=== PATIENT | female | born 1950 | race Two or more races ===

== ENCOUNTER 2018-02-24 10:43 | Inpatient (IN) | payer MEDICAID ==
[~2018-02-24] VITALS: Ht 170.2 cm; Wt 54.9 kg
--- NOTE | 2018-02-24 11:10 | NUR ---
AAOX3, BIB ra and [employer], pt was at home disheveled, covered with feces. RR is even and unlabored with nad noted. skin is warm and dry. placed on the monitor. Awaiting md for eval.
[2018-02-24 11:25] LABS: BASOPHILS % (AUTO) 0.5 % (0.0-2.0); EOSINOPHILS % (AUTO) 0.8 % (0.0-6.0); HEMATOCRIT 34 % (33-45); HEMOGLOBIN 11.2 g/dL (11.5-14.8); LYMPHOCYTES # (AUTO) 1.4 /CMM (0.8-4.8); LYMPHOCYTES % (AUTO) 16.2 % (20.0-44.0); MEAN CORPUSCULAR HGB CONC 33 g/dl (31.0-36.0); MEAN CORPUSCULAR VOLUME 89 fL (82-100); MONOCYTES # (AUTO) 0.8 /CMM (0.1-1.30); MONOCYTES % (AUTO) 8.7 % (2.0-12.0); NEUTROPHILS # (AUTO) 6.5 /CMM (1.8-8.9); NEUTROPHILS % (AUTO) 73.8 % (43.0-81.0); PLATELET COUNT (AUTO) 532 /CMM (150-450); RED BLOOD CELL COUNT(AUTO) 3.82 MIL/uL (4.0-5.2); WHITE BLOOD COUNT (AUTO) 8.8 K/uL (4.3-11.0)
[2018-02-24] MEDS ORDERED: IV NS 0.9% 1,000 ML BAG IV ONE (11:30)
[2018-02-24 11:35] LABS: CALCIUM, SERUM 8.2 mg/dL (8.5-10.1); CARBON DIOXIDE 27 mmol/L (21-32); CHLORIDE 103 mmol/L (98-107); CREATININE 0.7 mg/dL (0.6-1.3); GLUCOSE 101 mg/dL (74-106); POTASSIUM 3.3 mmol/L (3.5-5.1); SODIUM SERUM 139 mmol/L (136-145); UREA NITROGEN, BLOOD 26 mg/dL (7-18)
[2018-02-24 11:39] LABS: ALANINE AMINOTRANSFERASE 15 U/L (12-78); ALBUMIN 2.7 g/dL (3.4-5.0); ALCOHOL, BLOOD < 3 mg/dL (0-0); ALKALINE PHOSPHATASE 88 U/L (46-116); ASPARTATE AMINOTRANSFERASE 14 U/L (15-37); BILIRUBIN,DIRECT 0.1 mg/dL (0.0-0.2); BILIRUBIN,TOTAL 0.2 mg/dL (0.2-1.0); TOTAL PROTEIN, SERUM 6.9 g/dL (6.4-8.2)
[2018-02-24 11:40] LABS: ACETAMINOPHEN 0 ug/ml (10-30); SALICYLATE 0.5 mg/dL (2.8-20.0)
--- NOTE | 2018-02-24 11:53 | NUR ---
Urine obtained sent to the lab.
[2018-02-24 11:57] LABS: APPEARANCE,URINE Clear (CLEAR); BILIRUBIN,URINE Negative (NEGATIVE); BLOOD, URINE Trace-lysed Ery/uL (NEGATIVE); COLOR,URINE Yellow (YELLOW); KETONES,URINE Trace (NEGATIVE); LEUKOCYTE ESTERASE ,URINE Negative (NEGATIVE); NITRITE, URINE Negative (NEGATIVE); PH,URINE 5.5 (5.0-8.0); PROTEIN,URINE Trace mg/dl (NEGATIVE); UGLUCOSE Negative (NEGATIVE); UROBILINOGEN,URINE 0.2 EU/dL (0.2)
[2018-02-24 12:06] LABS: BACTERIA,URINE None seen /HPF (None Seen); SQUAMOUS EPITHELIAL CELL,UR Few /HPF (None Seen); WBC,URINE 0-3 /HPF (0-3)
--- NOTE | 2018-02-24 13:16 | NUR ---
Called nursing slab conditioner supervisor and requested a tele bed for this pt.
--- NOTE | 2018-02-24 13:25 | NUR ---
Patient's neighbor at talking to SAMMY Anand.
--- NOTE | 2018-02-24 13:38 | NUR ---
Patient is resting comfortably in bed with eyes closed. Easily aroused. VSS
[2018-02-24] MEDS ORDERED: MAG HYDROX/AL HYDROX/SIMETH 30 ML UDC PO PRN (14:00)
[2018-02-24] MEDS ORDERED: MAGNESIUM HYDROXIDE 30 ML UDC PO PRN (14:00)
[2018-02-24] MEDS ORDERED: ONDANSETRON HCL/PF 4 MG/2 ML VIAL IVP PRN (14:00)
[2018-02-24] MEDS ORDERED: POTASSIUM CHLORIDE 20 MEQ TAB.PRT.SR PO ONE (14:00)
[2018-02-24] MEDS ORDERED: IV NS 0.9% 1,000 ML IV SCH (14:00)
[2018-02-24] MEDS ORDERED: Z GUARD REMEDY 2 OZ OINT TP PRN (14:00)
--- NOTE | 2018-02-24 14:15 | NUR ---
Pt is assigned to [facility] 307-2, DX: Acute Encephalopathy, and accepting : Carolyn Reyes NP
--- NOTE | 2018-02-24 14:32 | NUR ---
REPORT GIVEN TO TAWANNA REID FOR RONEY TELE 307-1
--- NOTE | 2018-02-24 15:10 | NUR ---
TELE/RN OPENING NOTE THE PATIENT IS RECEIVED ON A GURNEY. THE PATIENT IS ABLE TO AMBULATE WITH STAND BY ASSIST FROM GURNEY TO BED. ALERT AND ORIENTED X2. REDIRECTION PROVIDED. ORIENTATION GIVEN TO THE ROOM AND UNIT. THE PATIENT DENIES PAIN AT THIS TIME. IN ROOM AIR AND DENIES SOB. RESPIRATION REGULAR AND UNLABORED. LEFT FOREARM G 20 PATENT AND SALINE LOCKED. BED LOW AND LOCKED. SIDE RAILS UP X3. BED ALARM ON. CALL LIGHT WITHIN REACH. WILL CONTINUE TO MONITOR.
[2018-02-24 15:30] VITALS: BP 131/74
[2018-02-24] MEDS: ENOXAPARIN SODIUM 40 MG/0.4 ML DISP.SYRIN SQ SCH (15:51)
--- NOTE | 2018-02-24 17:58 | NUR ---
TELE/RN CLOSING NOTE THE PATIENT ALERT AND ORIENTED X2. DENIES PAIN. PATIENT IS IN ROOM AIR AND DENIES SOB. SATURATION IN ROOM AIR AT 95%. THE PATIENT IS IN NO APPARENT DISTRESS. LEFT FOREARM G 20 PATENT AND NORMAL SALINE INFUSING AT 50ML/HR. NO S/S INFILTRATION NOTED. VERBAL CUES ARE GIVEN TO KEEP SAFETY AWARENESS HIGH. BED LOW AND LOCKED. SIDE RAILS UP X3. BED ALARM ON. CALL LIGHT WITHIN REACH. WILL ENDORSE TO DATA SECURITY COORDINATOR.
[2018-02-24 20:00] VITALS: BP 114/69
--- NOTE | 2018-02-24 20:00 | NUR ---
TELE/RN NOTES RECEIVED PATIENT IN BED, AWAKE, ALERT X2, CAN OPEN EYES AND RESPOND, AMBULATES WITH ASSISTANCE, INSTRUCT TO CALL FOR ASSISTANCE, SAFETY MEASURES PROVIDED, BED LOCKED, CALL LIGHTS WITHIN REACH AND BED ALARM ON. SKIN WARM TO TOUCH, HAD ONE BM ATTHE START OF SHIFT, ON TELE MONITOR SR 78. RECEIVED REPORT FROM AM RN FOR RONEY.
[2018-02-25] VITALS: BP 131/79
[2018-02-25] MEDS: ACETAMINOPHEN 325 MG TABLET PO PRN (00:38)
--- NOTE | 2018-02-25 00:42 | NUR ---
TELE/RN NOTES' REPORTED PAIN ON RIGHT ARM , TYLENOL GIVEN 650MG PO 05/26
[2018-02-25 04:00] VITALS: BP 125/81
[2018-02-25 06:19] LABS: BASOPHILS % (AUTO) 0.4 % (0.0-2.0); EOSINOPHILS % (AUTO) 0.7 % (0.0-6.0); HEMATOCRIT 29 % (33-45); LYMPHOCYTES # (AUTO) 1.6 /CMM (0.8-4.8); LYMPHOCYTES % (AUTO) 28.1 % (20.0-44.0); MEAN CORPUSCULAR HGB CONC 34 g/dl (31.0-36.0); MEAN CORPUSCULAR VOLUME 87 fL (82-100); MONOCYTES # (AUTO) 0.7 /CMM (0.1-1.30); MONOCYTES % (AUTO) 11.9 % (2.0-12.0); NEUTROPHILS # (AUTO) 3.4 /CMM (1.8-8.9); NEUTROPHILS % (AUTO) 58.9 % (43.0-81.0); PLATELET COUNT (AUTO) 442 /CMM (150-450); RED BLOOD CELL COUNT(AUTO) 3.34 MIL/uL (4.0-5.2); WHITE BLOOD COUNT (AUTO) 5.8 K/uL (4.3-11.0)
[2018-02-25 06:39] LABS: THYROID STIMULATING HORMONE 1.975 uIU/mL (0.358-3.74)
[2018-02-25 06:41] LABS: CALCIUM, SERUM 7.8 mg/dL (8.5-10.1); CREATININE 0.7 mg/dL (0.6-1.3); MAGNESIUM 1.8 mg/dL (1.8-2.4); PHOSPHORUS 2.7 mg/dL (2.5-4.9); POTASSIUM 3.6 mmol/L (3.5-5.1)
--- NOTE | 2018-02-25 06:47 | NUR ---
307-2 TELE/RN NOTES PATIENT ALERT X2, CAN FOLLOW SIMPLE COMMANDS, WITH [employer] CONTACT, TELE SR 70'S, ON PAIN MANAGMENT MONITORING, ASSISTED FOR SAFTY, ON LFA RUNNING AT 50CC/HR.WILL MONITOR AND ENDORSE TO AM RN FOR RONEY.
--- NOTE | 2018-02-25 07:20 | NUR ---
PUBLIC AFFAIRS SPECIALIST OPENING NOTES PATIENT ALERT X2, TELE SR 101'S AT THIS TIME, SAFETY PRECAUTIONS IN PLACE,PA ABLE TO WALK.IV FLUID ON LFA RUNNING AT 50CC/H. CALL LIGHT WITH IN THE REACH.WILL CONTINUE TO MONITOR
[2018-02-25 08:00] VITALS: BP 129/61
--- NOTE | 2018-02-25 09:43 | NUR ---
PT PULLED OUT IV LINE. WILL INSERT ANOTHER ONE.
--- NOTE | 2018-02-25 10:00 | NUR ---
PT PICKET UP FOR MRI
--- NOTE | 2018-02-25 13:48 | NUR ---
ALAN received a call from pt's neighbor Rodger stating that he was the one that found the pt. on the floor in her home, covered in feces. [employer] and APS ALAN Reyes are involved. Rodger informed ALAN he will call ALAN back and give her a time and date when he can visit with her and onsite case manager to discuss further plan of care.
--- NOTE | 2018-02-25 15:12 | NUR ---
ALAN and case management director Logan met with pt's neighbor Rodger Rose to discuss pt's disposition and possible discharge plan. ALAN and case management director informed Rodger they will keep him posted regarding pt's discharge plan as it is not determined as of yet. According to Rodger, pt's date of might be 1950 instead of 1950. ALAN and Rodger went to see the pt. bedside, however pt. was having a test done bedside. Pt. recognized Rodger and abruptly said, " You sent me here, didn't you." ALAN and Rodger were asked to leave the room due to pt. having a test. ALAN to visit with pt. tomorrow for an assessment. Addendum: 02/25/18 at 1527 by ELEAZAR PHILLIPS According to Rodger, pt. has an open case with APS. APS social media editor is Amy .
--- NOTE | 2018-02-25 15:28 | NUR ---
ALAN contacted APS ALAN Reyes and left him a voicemail message requesting a call back.
[2018-02-25 16:00] VITALS: BP 143/58
--- NOTE | 2018-02-25 19:00 | NUR ---
RN NOTES RECEIVE PT IN THE BED A/O X 1, IN STABLE CONDITION, NOT IN DISTRESS, SAFETY MEASURES IN PLACE. WILL CONTINUE TO MONITOR.
--- NOTE | 2018-02-25 19:20 | NUR ---
PATIENT ALERT/ORIENTED X2, ON ROOM AIR TOLERATING WELL, NO DISTRESS NOTED. NEEDS ATTENDED. SAFETY PRECAUTIONS IN PLACE. WILL ENDORSE TO NEXT SHIFT FOR RONEY.
[2018-02-25 20:00] VITALS: BP 120/54
[2018-02-25] MEDS: ENOXAPARIN SODIUM 40 MG/0.4 ML DISP.SYRIN SQ SCH (20:57)
[2018-02-25] MEDS: IV NS 0.9% 1,000 ML IV PRN (20:59)
--- NOTE | 2018-02-26 06:34 | NUR ---
RN CLOSING NOTE PT IN BED RESTING ASLEEP AND EASILY AWAKEN. TOLERATING ROOM AIR 100%. NO S/S OF RESP DISTRESS OR SOB. ALL PT NEEDS ANTICIPATED AND MET. KEPT CLEAN AND DRY AND COMFORT, SAFETY MEASURES IN PLACE, CALL LIGHT WITHIN REACH. WILL ENDORSE TO SPLICING MACHINE OPERATOR AUTOMATIC FOR RONEY.
--- NOTE | 2018-02-26 07:00 | NUR ---
MS RN NOTES PATIENT IN BED ALERT ORIENTED X 2. NO ACUTE DISTRESS NOTED, BREATHING UNLABORED. NO SOB NOTED. IV ACCESS PATENT AND INTACT. NO REDNESS OR SWELLING NOTED. SAFETY MEASURES IN PLACE, CALL LIGHT WITHIN REACH. WILL CONTINUE TO MONITOR ACCORDINGLY.
--- NOTE | 2018-02-26 07:19 | NUR ---
ms rn notes\ pt refused AM blood draw per pt wanted after breakfast will endorse next shift
[2018-02-26 08:00] VITALS: BP 122/77
--- NOTE | 2018-02-26 09:49 | NUR ---
ALAN received a call from APS ALAN Reyes informing ALAN that pt. is not able to go back home. Pt's mother and pt. has been living in her home since then. Pt. has no family. Pt. will need placement. MEHDI Reyes also informed ALAN to apply to the public guardian's office.
[2018-02-26 11:55] LABS: ALBUMIN 2.5 g/dL (3.4-5.0); BILIRUBIN,TOTAL 0.2 mg/dL (0.2-1.0); CALCIUM, SERUM 8.6 mg/dL (8.5-10.1); CREATININE 0.8 mg/dL (0.6-1.3); PHOSPHORUS 4.4 mg/dL (2.5-4.9); POTASSIUM 3.4 mmol/L (3.5-5.1); TOTAL PROTEIN, SERUM 6.6 g/dL (6.4-8.2)
--- NOTE | 2018-02-26 14:00 | NUR ---
MS RN NOTES CATALYST OPERATOR CHIEF [employer] MADE AWARE OF LABORATORY TEST RESULTS INCLUDING POTASSIUM, AST, AND ALBUMIN LEVEL FROM TODAY, NO NEW ORDER MADE AT THIS TIME.
--- NOTE | 2018-02-26 14:14 | NUR ---
Social service consult requested by NOMAN Reyes for possible APS report. Pt. is a 67 year old female who was admitted to [facility] for acute encephalopathy. SW met with pt. bedside. Pt. is alert and oriented x 2. Pt. appears disheveled and has a bauer on her chin. Pt. is able to state her home address at [address] in [place]. [place]. Pt. states, " I don't have family anymore." Pt's house in inhabitable per [employer] and APS ALAN Reyes. Pt. appears confused and is not able to provide social security number or date of . Pt. states she lives alone. SW inquired with pt. how does she get her groceries etc. Pt. states she receives SSI and goes to [employer] in [place] to get her money and goes to [employer]. Pt. also states that her neighbor Stephanie is very nice and helps her out. Pt. cannot remember how much SSI she receives per month. Pt further stated, " I don't need help, I can do everything on my own." Pt. kept repeating that she wants to go back home. Pt. is awaiting a psychiatric consult at this time.
--- NOTE | 2018-02-26 15:08 | NUR ---
ALAN contacted Public Guardian's office and spoke to Alexandru Manley, Cash Office Worker Public Conservator [facility] regarding an application for the pt. Alexandru informed SW he will email her the form and to contact him if she had any questions to Office of the Public Guardian . ALAN received the application, completed the application for [facility] and faxed it to . ALAN returned pt's neighbor Rodger's phone call and left him a voicemail message informing him that SW sent in an application to the public guardian's office. ALAN also left him a message regarding SW's communication with the pt.
[2018-02-26 16:00] VITALS: BP 118/68
--- NOTE | 2018-02-26 19:00 | NUR ---
MS RN NOTES PATIENT IN BED ALERT ORIENTED X 2. NO ACUTE DISTRESS NOTED, BREATHING UNLABORED. NO SOB NOTED. IV ACCESS PATENT AND INTACT. NO REDNESS OR SWELLING NOTED.DUE MEDICATIONS GIVEN, NO ASE NOTED. NEEDS ATTENDED AND ANTICIPATED. KEPT CLEAN DRY AND COMFORTABLE. SAFETY MEASURES IN PLACE, CALL LIGHT WITHIN REACH. ENDORSED TO NIGHT NURSE FOR CONTINUITY OF CARE.
--- NOTE | 2018-02-26 19:29 | NUR ---
MS RN NOTE PATIENT RECURRED AAOX2 IN BED. PATIENT HAS NO S/S OF DISTRESS, NO C.O OF /SOB, CHEST PAIN OR DISCOMFORT. PATIENT EDUCATED ON PLAN OF CARE FOR TONIGHT AND USE OF CALL LIGHT. BED IN LOWEST LOCKED POSITION, SIDE RAILS UP X 2. RN WILL CONTINUE TO MONITOR.
[2018-02-26 20:00] VITALS: BP 123/69
[2018-02-26] MEDS: ENOXAPARIN SODIUM 40 MG/0.4 ML DISP.SYRIN SQ SCH (20:07)
[2018-02-27 04:00] VITALS: BP 122/76
[2018-02-27] MEDS: IV NS 0.9% 1,000 ML IV PRN (06:09)
--- NOTE | 2018-02-27 06:36 | NUR ---
MS RN NOTE PATIENT TOLERATED THE NIGHT WELL WELL NO ACUTE CHANGES THROUGHOUT THE SHIFT. PATIENT HAS NO S/S OF DISTRESS. RN WILL [id number] TO AM POC FOR CONTINUITY OF CARE.
[2018-02-27 08:00] VITALS: BP 117/57
[2018-02-27 16:00] VITALS: BP_SYST 123; BP_DIAS 70; BP_DIAS 97
--- NOTE | 2018-02-27 19:01 | NUR ---
MS RN OPENING NOTES Received patient awake, on left side lying position on bed. With patent peripheral IV line LFA G#20 with NS @ 50ml/hr infusing well, no s/sx of infiltration noted. Patient noted disheveled, talking to self, inappropriate response to stimuli, incoherent thoughts, and blank staring to the person talking to her. Kept on bed comfortable. Kept bed low and locked, alarm on. Call light at beside. Will continue to monitor accordingly.
[2018-02-27 20:00] VITALS: BP 94/54
[2018-02-27 20:41] VITALS: BP 94/54
[2018-02-27] MEDS: ENOXAPARIN SODIUM 40 MG/0.4 ML DISP.SYRIN SQ SCH (21:12)
[2018-02-28 04:00] VITALS: BP 123/76
--- NOTE | 2018-02-28 06:35 | NUR ---
MS RN CLOSING NOTES Patient asleep on semi-Bailey's position with patent peripheral IV line LFA G#20 with NS @ 50ml/hr as ordered. With episodes of paranoia noted. Kept on bed clean dry and comfortable. Able to ambulate to bathroom with standby assistance. No new unusualities noted. Kept bed low and lock, exit alarm on. Call light at bedside. Endorsed to the next shift.
--- NOTE | 2018-02-28 07:30 | NUR ---
PT RECEIVED RESTING COMFORTABLY IN BED WITH EYES CLOSED. NO S/S OR C/O PAIN OR DISTRESS NOTED. SIDE RAILS UP X2, CALL LIGHT LEFT WITHIN REACH. WILL CONTINUE PLAN OF CARE.
[2018-02-28 07:38] LABS: BASOPHILS % (AUTO) 0.3 % (0.0-2.0); EOSINOPHILS % (AUTO) 0.8 % (0.0-6.0); HEMATOCRIT 34 % (33-45); HEMOGLOBIN 11.3 g/dL (11.5-14.8); LYMPHOCYTES # (AUTO) 1.4 /CMM (0.8-4.8); MEAN CORPUSCULAR HGB CONC 33 g/dl (31.0-36.0); MEAN CORPUSCULAR VOLUME 88 fL (82-100); MONOCYTES # (AUTO) 0.6 /CMM (0.1-1.30); MONOCYTES % (AUTO) 10.8 % (2.0-12.0); NEUTROPHILS # (AUTO) 3.7 /CMM (1.8-8.9); NEUTROPHILS % (AUTO) 64.1 % (43.0-81.0); PLATELET COUNT (AUTO) 505 /CMM (150-450); RED BLOOD CELL COUNT(AUTO) 3.84 MIL/uL (4.0-5.2); WHITE BLOOD COUNT (AUTO) 5.7 K/uL (4.3-11.0)
[2018-02-28 08:00] VITALS: BP 134/71
[2018-02-28 08:04] LABS: CREATININE 0.7 mg/dL (0.6-1.3); MAGNESIUM 2.3 mg/dL (1.8-2.4); PHOSPHORUS 3.5 mg/dL (2.5-4.9); POTASSIUM 4.3 mmol/L (3.5-5.1)
[2018-02-28 08:09] LABS: CALCIUM, SERUM 8.7 mg/dL (8.5-10.1)
--- NOTE | 2018-02-28 13:00 | NUR ---
PT REFUSED PHYSICAL THERAPY
[2018-02-28 16:00] VITALS: BP 119/75
[2018-02-28 20:00] VITALS: BP 137/71
[2018-02-28 20:27] VITALS: BP 137/71
[2018-02-28] MEDS: IV NS 0.9% 1,000 ML IV PRN (21:07)
[2018-02-28] MEDS: ENOXAPARIN SODIUM 40 MG/0.4 ML DISP.SYRIN SQ SCH (21:09)
[2018-03-01 04:00] VITALS: BP 118/64
--- NOTE | 2018-03-01 07:15 | NUR ---
RN OPENING NOTES RECEIVED PT. IN BED A&OX2, CONFUSED. BREATHING UNLABORED ON ROOM AIR. NO S/S OF ACUTE DISTRESS. IV FLUIDS RUNNING AT 75 ML/HR. BED IS IN LOWEST, AND LOCKED POSITION. 2 SIDE RAILS UP, BED ALARM ON. INSTRUCTED PT. TO USE CALL LIGHT FOR ASSISTANCE. ALL NEEDS MET. WILL CONTINUE TO ASSESS AND MONITOR.
[2018-03-01 08:00] VITALS: BP 124/71
[2018-03-01] MEDS: IV NS 0.9% 1,000 ML IV PRN (09:24)
[2018-03-01 16:00] VITALS: BP 115/70
--- NOTE | 2018-03-01 19:35 | NUR ---
RN MS OPENING NOTES RECEIVED PT IN BED, AWAKE ALERT ORIENTEDX2. BREATHING EVEN AND UNLABORED ON RA. NO COMPLAINS OF PAIN OR DISCOMFORT AT THIS TIME. IV ACCESS DISLODGED, WILL REINSERT. BED IN LOWEST LOCKED POSITION, CALL LIGHT WITHIN REACH AT ALL TIMES. WILL CONTINUE TO MONITOR
--- NOTE | 2018-03-01 19:45 | NUR ---
RN CLOSING NOTES PT. IS IN BED A&OX2, CONFUSED. BREATHING UNLABORED ON ROOM AIR. NO S/S OF ACUTE DISTRESS. IV FLUIDS RUNNING AT 75 ML/HR. BED IS IN LOWEST, AND LOCKED POSITION. 2 SIDE RAILS UP. INSTRUCTED PT. TO USE CALL LIGHT FOR ASSISTANCE. ALL NEEDS MET. WILL ENDORSE REPORT TO NURSE.
[2018-03-01 20:00] VITALS: BP 123/70
[2018-03-01] MEDS: ENOXAPARIN SODIUM 40 MG/0.4 ML DISP.SYRIN SQ SCH (20:19)
--- NOTE | 2018-03-02 06:40 | NUR ---
RN MS CLOSING NOTES PT REMAINS IN BED SLEEPING, AROUSED TO TOUCH AND NAME CALL. BREATHING EVEN AND UNLABORED ON ROOM AIR. NO SIGNS OF PAIN OR DISCOMFORT A THE MOMENT. IV ACCESS ON THE L WRIST 20G WITH NS @50ML/HR. BED IN LOWEST LOCKED POSITION, CALL LIGHT WITHIN REACH AT ALL TIMES. WILL ENDORSE TO DAY NURSE FOR RONEY
--- NOTE | 2018-03-02 07:56 | NUR ---
MS RN OPENING NOTE RECEIVED PATIENT IN BED. SLEEPING, EASILY AROUSED WITH VERBAL STIMULI. ORIENTED X1-2 ON ROOM AIR, TOLERATING WELL. IN NO APPARENT STRESS OR DISCOMFORT AT THIS TIME. RESPIRATIONS EVEN AND UNLABORED. DENIES PAIN AND SOB. PATIENT IS ABLE TO COMMUNICATE NEEDS. LEFT WRIST 20G IVC SL. PATIENT KEPT CLEAN AND COMFORTABLE. ALL NEEDS ATTENDED, SAFETY MEASURES IN PLACE, BED IN LOW LOCKED POSITION, SIDE RAILS UP X2, CALL LIGHT WITHIN EASY REACH. WILL CONTINUE TO MONITOR.
[2018-03-02 08:00] VITALS: BP 126/77
--- NOTE | 2018-03-02 12:00 | NUR ---
WAS TOLD BY ELISABET ARANGO THAT PATIENT HAS BEEN REFUSING AM CARE. TRIED TO CONVINCE THE PATIENT, HOWEVER, PATIENT IS UNCOOPERATIVE AT TIMES, SHOUTS AT NURSES, USES OFFENSIVE WORDS. UNABLE TO CONVINCE, WILL REATTEMPT AT LATER TIME.
--- NOTE | 2018-03-02 15:00 | NUR ---
ALAN called [facility] to inquire if pt. is or has been a client there. Per nurse receptionist, pt. was a client but her case is inactive at this time. ALAN contacted APS ALAN Velazquez to inquire if he will be able to assist in getting social security and insurance information from [facility] since pt. is unable to provide that information. Marcus informed ALAN he will contact them and call ALAN back. ALAN gave Marcus phone number to [facility].
[2018-03-02 16:00] VITALS: BP 114/66
--- NOTE | 2018-03-02 17:00 | NUR ---
MS RN NOTE REINFORCED HYGIENE CARE TO THE PATIENT WITH THE ELISABET ARANGO. PATIENT STILL REFUSES TO BE TOUCHED. AGREED TO LINEN CHANGE AND CLEANED HER FACE HERSELF WITH WET WASHCLOTH. EDUCATION PROVIDED REGARDING HYGIENE CARE AND INFECTION CONTROL. POOR CONCENTRATION OBSERVED. WILL REINFORCE.
--- NOTE | 2018-03-02 18:22 | NUR ---
MS RN CLOSING NOTE PATIENT IN BED. ALERT ORIENTED X2. ON ROOM AIR, TOLERATING WELL. IN NO APPARENT STRESS OR DISCOMFORT AT THIS TIME. RESPIRATIONS EVEN AND UNLABORED. DENIES PAIN AND SOB. PATIENT IS ABLE TO COMMUNICATE NEEDS. LEFT WRIST 20G IVC SL. PATIENT KEPT COMFORTABLE. ALL NEEDS ATTENDED, SAFETY MEASURES IN PLACE, BED IN LOW LOCKED POSITION, SIDE RAILS UP X2, CALL LIGHT WITHIN EASY REACH. WILL ENDORSE TO PM NURSE FOR RONEY.
--- NOTE | 2018-03-02 19:05 | NUR ---
ms/rn opening notes RECEIVED PATIENT IN BED,CASE MGMT. ABLE TO RESPOND WITH SIMPLE ANSWER BUT FORGETFUL. ON ROOM AIR, SKIN WARM TO TOUCH, REQUIRE MONITORING FOR SAFETY. BED LOCKED, CALL LIGHTS WITHIN REACH, HAS REDNESS IN GROIN, REQUIRE ZGUARD AND ASSIST TO BATHROOM.BED LOCKED, PROVIDE AND OFFERED FLUIDS, WILL MONITOR.
[2018-03-02 20:00] VITALS: BP 119/63
[2018-03-02] MEDS: ENOXAPARIN SODIUM 40 MG/0.4 ML DISP.SYRIN SQ SCH (21:24)
[2018-03-02] MEDS: IV NS 0.9% 1,000 ML IV PRN (21:31)
--- NOTE | 2018-03-03 06:23 | NUR ---
307-2 MS/RN NOTES PATIENT SLEPT INTERMITENTLY, ALERT X2, REQUIRE FREQUENT REORIENTATION. RESPIRATIONS EVEN AND UNLABORED, SKIN WARM TO TOUCH. KEPT COMFORTABLE, SAFETY MEASURES PROVIDED. OFFERED AND PROVIDE FLUIDS AND SNACKS. ASSISTED AND MONITORED WILL ENDORSE TO AM RN FOR RONEY. BED LOCKED, BED ALARM ON. WILL ENDORSE TO AM RN FOR RONEY.
--- NOTE | 2018-03-03 07:15 | NUR ---
MS RN OPENING NOTE RECEIVED PATIENT IN BED. SLEEPING, EASILY AROUSED WITH VERBAL STIMULI. ORIENTED X1-2, ON ROOM AIR, TOLERATING WELL. IN NO APPARENT DISTRESS OR DISCOMFORT AT THIS TIME. RESPIRATIONS EVEN AND UNLABORED. DENIES PAIN AND SOB. PATIENT IS ABLE TO COMMUNICATE NEEDS. LEFT WRIST 20G IVC SL. PATIENT KEPT CLEAN AND COMFORTABLE. ALL NEEDS ATTENDED, SAFETY MEASURES IN PLACE, BED IN LOW LOCKED POSITION, SIDE RAILS UP X2, CALL LIGHT WITHIN EASY REACH. WILL CONTINUE TO MONITOR.
[2018-03-03 08:00] VITALS: BP 145/49
--- NOTE | 2018-03-03 11:43 | NUR ---
ALAN left a voicemail message for APS ALAN Velazquez to follow up regarding his phone call to the [facility] and if he was able to get any more information on the client such as social security and medical insurance. .
[2018-03-03 16:00] VITALS: BP 108/71
--- NOTE | 2018-03-03 18:21 | NUR ---
MS RN CLOSING NOTE PATIENT IN BED. ALERT ORIENTED X1-2. DISHEVELLED, MOOD CHANGES, UNCOOPERATIVE AT TIMES. ON ROOM AIR, TOLERATING WELL. IN NO APPARENT DISTRESS OR DISCOMFORT AT THIS TIME. RESPIRATIONS EVEN AND UNLABORED. DENIES PAIN AND SOB. PATIENT IS ABLE TO COMMUNICATE NEEDS WHEN ASKED. LEFT WRIST 20G IVC SL. PATIENT KEPT COMFORTABLE. ALL NEEDS ATTENDED, SAFETY MEASURES IN PLACE, BED IN LOW LOCKED POSITION, SIDE RAILS UP X2, CALL LIGHT WITHIN EASY REACH. WILL ENDORSE TO PM NURSE FOR RONEY.
--- NOTE | 2018-03-03 19:30 | NUR ---
MS/RN OPENING NOTES RECEIVED PATIENT IN BED, RESTING COMFORTABLY, OFFERED FLUIDS, RESPIRATIONS EVEN AND UNLABORED, ABLE TO FOLLOW SIMPLE COMMANDS, REQUIRE SUPERVISION FOR SAFETY, CALL LIGHTS WITHIN REACH, BED LOCK, CALL LIGHTS WITHIN REACH, WILL MONITOR.
[2018-03-03 20:00] VITALS: BP 115/69
[2018-03-03 20:40] VITALS: BP 115/69
[2018-03-03] MEDS: ACETAMINOPHEN 325 MG TABLET PO PRN (20:45)
[2018-03-03] MEDS: ENOXAPARIN SODIUM 40 MG/0.4 ML DISP.SYRIN SQ SCH (20:47)
--- NOTE | 2018-03-03 20:50 | NUR ---
ms/rn notes PATIENT IN BED, TALKING TO SELF, OBSERVE SOME PAIN IN RIGHT ARM, TYLENOL 650MG PO OFFERED, PROVDED FLUIDS. LOVENOX INJECTION ORDERED FOR PATIENT, REQUIRE FREQUENT REORIENTATION, REFUSE TO HAVE IT AFTER AGREEING TO HAVE IT EARLIER.
--- NOTE | 2018-03-04 06:40 | NUR ---
307-2 ms/rn notes PATIENT SLEPT INTERMITENTLY. RESPIRATIONS EVEN AND UNLABORED, CAN OPEN EYES AND RESPOND TO SIMPLE QUESTIONS, REFUSAL OF CARE AND NON COMPLIANCE TO MEDICATION REGINMEN, REQUIRE ASSISTANCE FOR SAFETY. BED LOCKED, CALL LIGHTS WITHIN REACH. WILL ENDORSE TO AM RN FOR RONEY.
[2018-03-04 08:00] VITALS: BP 147/75
[2018-03-04 16:00] VITALS: BP 120/61
--- NOTE | 2018-03-04 16:19 | NUR ---
ALAN returned Melody Emanuel's voicemail from the [facility] and left a voicemail message for her with a call back number.
--- NOTE | 2018-03-04 19:45 | NUR ---
RN OPENING NOTES RECEIVED REPORT FROM LISAHIFT RNKASIE (FROM REGISTRY). FOUND Pt AWAKE, RESTING IN BED. MUMBLING TO SELF. NO S/S OF ACUTE DISTRESS OR SOB NOTED. Pt IS A/OX1-2, IS ORIENTED TO NAME & , BUT CANNOT RECALL THE DATE. Pt IS VERBAL, AND ABLE TO COMMUNICATE NEEDS AND FOLLOW SIMPLE COMMANDS. IV ACCESS ON LWRIST #20G. SAFETY MEASURES IN PLACE. BED LOW, LOCKED, HOB ELEVATED, SIDE RAILS UP, CALL LIGHT AND BEDSIDE TABLE WITHIN REACH. WILL CONTINUE TO MONITOR Pt's CONDITION AND SAFETY THROUGHOUT THE NIGHT.
[2018-03-04 20:00] VITALS: BP 121/65
[2018-03-04 20:19] VITALS: BP 121/65
[2018-03-04] MEDS: ENOXAPARIN SODIUM 40 MG/0.4 ML DISP.SYRIN SQ SCH (21:29)
--- NOTE | 2018-03-05 06:45 | NUR ---
RN CLOSING NOTES NO SIGNIFICANT CHANGES IN Pt's CONDITION. Pt REMAINS STABLE PER BASELINE. Pt RESTING IN BED. RESPIRATIONS EVEN AND UNLABORED. NO S/S OF ACUTE DISTRESS OR SOB NOTED DURING NIGHT. ALL NEEDS MET AND ATTENDED TO. SAFETY MEASURES IN PLACE. WILL ENDORSE TO DAYSHIFT RN FOR Pt's RONEY.
--- NOTE | 2018-03-05 08:00 | NUR ---
MS/RN OPENING NOTES RECEIVED PATIENT IN BED, RESTING COMFORTABLY, OFFERED FLUIDS, RESPIRATIONS EVEN AND UNLABORED, ABLE TO FOLLOW SIMPLE COMMANDS, REQUIRE SUPERVISION FOR SAFETY,ON BED ALARM.PT TRIED GETTING OOB ON HER OWN SEVERAL TIMES. GOOD SPONGE BATH GIVEN IN BED.USES BEDSIDE COMMODE.CALL LIGHT WITHIN REACH, BED LOCK, WILL MONITOR.
[2018-03-05 08:11] VITALS: BP 107/60
--- NOTE | 2018-03-05 11:27 | NUR ---
INFORMED CONG.DOCUMENTATION SPEC OF PT'S VERY LONG TOENAILS THAT CAUSES DISCOMFORT TO THE PT.
--- NOTE | 2018-03-05 12:40 | NUR ---
DR TRACY CAME TO CHECKED PT'S VERY LONG TOENAILS AND TRIMMED THEM.PT WAS SO GLAD TO HAVE HER TOENAILS FINALLY TRIMMED.
[2018-03-05 16:00] VITALS: BP 114/62
--- NOTE | 2018-03-05 16:15 | NUR ---
ALAN sent an email ([email or web address]) to Mr. Gardner at the public guardian's office regarding referral for public guardian application that was completed and faxed to him on 02/26/18.
[2018-03-05] MEDS: IV NS 0.9% 1,000 ML IV PRN (17:22)
--- NOTE | 2018-03-05 17:58 | NUR ---
PT ATE 100% EVERY MEAL-EVEN DOUBLE PORTIONS AT TIMES.WITH VERY GOOD APPETITE.PT HAS RT ARM WEAKNESS AND NEEDS ASSISTANCE IN SLICING HER MEAT IN THE PLATE,PUTTING STRAW IN HER MILK OR JUICE,OPENING THE LIDS OF HER SOUP AND COFFEE.MUMBLES TO HER SELF MOST OF THE TIME.ASSISTED TO THE COMMODE NEEDED.GOOD SKIN CARE AND PERICARE DONE.DENIES ANY PAIN OR DISTRESS.CALL LIGHT PLACED WITHIN REACH.
--- NOTE | 2018-03-05 19:40 | NUR ---
MS/RN OPENING NOTES RECEIVED PATIENT IN BED, SKIN WARM TO TOUCH, ON VENTURI MASK AT 4 LITER WITH FLUCTUATING OXYGENATION READING, RT AT BEDSIDE FOR SUCTIONING, CONGESTED, PULSE ABOVE 100, CONTRACTED, NON VERBAL REQUIRE EXTENSIVE ASSISTANCE. FREQUENT MONITORING, SECRETIONS THICK. BED LOCKED, RECEIVED ENDORESMENT FROM AM RN FOR RONEY. Addendum: 03/05/18 at 1944 by CASEY SHER RN PLS DISREGARD FOR ANOTHER PATIENT
--- NOTE | 2018-03-05 19:48 | NUR ---
MS/RN OPENING NOTES RECEIVED PATIENT IN BED, RESTING COMFORTABLY IN BED, SKIN WARM TO TOUCH, RESPIRATIONS EVEN AND UNLABORED, WATCHING TV, NO GRIMACE OR GUARDING, CALL LIGHTS WITHIN REACH, REQUIRE SUPERVISION TO GET UP, SAFETY MEASURES PROVIDED, BED LOCKED AND BED ALARM ON. RECEIVED ENDORSEMENT FROM AM RN FOR RONEY, WILL MONITOR.
[2018-03-05 20:00] VITALS: BP 119/68
[2018-03-05] MEDS: ENOXAPARIN SODIUM 40 MG/0.4 ML DISP.SYRIN SQ SCH (21:32)
[2018-03-06] MEDS: ACETAMINOPHEN 325 MG TABLET PO PRN (04:53)
--- NOTE | 2018-03-06 06:38 | NUR ---
307-2 MS/RN NOTES PATIENT ABLE TO SLEEP INTERMITENTLY, RESPIRATIONS EVEN AND UNLABORED, ABLE TO COOPERATE AND PARTICIPATE WITH CARE BUT REQUIRE REMINDER AND COMPLIANCE TO MEDICATION . SAFETY MEASURES PROVIDED, BED LOCLED, CALL LIGHTS WITHIN REACH, WILL MONITOR AND ENDORSE TO AM RN FOR RONEY.
--- NOTE | 2018-03-06 08:00 | NUR ---
MS/RN OPENING NOTES RECEIVED PATIENT IN BED, RESTING COMFORTABLY, OFFERED FLUIDS, RESPIRATIONS EVEN AND UNLABORED, ABLE TO FOLLOW SIMPLE COMMANDS, REQUIRES SUPERVISION FOR SAFETY,ON BED ALARM.PT TRIED GETTING OOB ON HER OWN SEVERAL TIMES. FALL RISK AND AT RISK OF GETTING HER IV H/L PULLED OUT.GOOD SPONGE BATH GIVEN IN BED.PT REFUSED TO HAVE HER HAIR BE WASHED EVEN IF IT'S TOO STICKY AND DISHEVELED.USES BEDSIDE COMMODE.CALL LIGHT WITHIN REACH, BED LOCK, WILL MONITOR.
[2018-03-06 08:03] VITALS: BP 135/75
[2018-03-06 16:11] VITALS: BP 111/81
--- NOTE | 2018-03-06 19:39 | NUR ---
MS RN NOTE RECEIVED PT IN STABLE CONDITION A&0 X1-2. ABLE TO FOLLOW SIMPLE COMMANDS. BREATHING EVEN AND UNLABORED WITH NO SIGNS OF SOB OR DISTRESS. IV ON L WRIST #20 PATENT AND INTACT INFUSING NS @50 ML/HR. BED ALARM ON. SAFETY MEASURES IN PLACE: BED LOW, LOCKED POSITION, UPPER RAILS UP X2 AND CALL LIGHT WITHIN REACH. WILL CONT. TO MONITOR.
[2018-03-06 20:00] VITALS: BP 110/71
[2018-03-06] MEDS: ENOXAPARIN SODIUM 40 MG/0.4 ML DISP.SYRIN SQ SCH (20:03)
[2018-03-07] MEDS: IV NS 0.9% 1,000 ML IV PRN (04:11)
--- NOTE | 2018-03-07 06:20 | NUR ---
MS RN NOTE PT IN STABLE CONDITION A&0 X1-2. ABLE TO FOLLOW SIMPLE COMMANDS. BREATHING EVEN AND UNLABORED WITH NO SIGNS OF SOB OR DISTRESS. IV ON L WRIST #20 PATENT AND INTACT INFUSING NS @50 ML/HR. BEDSIDE COMMODE WITHIN REACH. BED ALARM ON. SAFETY MEASURES IN PLACE: BED LOW, LOCKED POSITION, UPPER RAILS UP X2 AND CALL LIGHT WITHIN REACH. WILL CONT. TO MONITOR WILL ENDORSE TO NEXT SHIFT FOR CONT. OF CARE.
--- NOTE | 2018-03-07 07:55 | NUR ---
RN OPENING NOTES RECEIVED PT. IN BED A&OX2, ORIENTED TO NAME AND PLACE. BREATHING UNLABORED ON ROOM AIR. NO S/S OF ACUTE DISTRESS. IV FLUIDS AT BEDSIDE. BED IS IN LOWEST, AND LOCKED POSITION. 2 SIDE RAILS UP, AND INSTRUCTED PT. TO USE CALL LIGHT FOR ASSISTANCE. ALL NEEDS MET. WILL CONTINUE TO ASSESS AND MONITOR.
[2018-03-07 08:00] VITALS: BP 127/75
[2018-03-07 16:00] VITALS: BP 123/76
--- NOTE | 2018-03-07 19:30 | NUR ---
MS RN NOTE RECEIVED PT IN STABLE CONDITION. A&O X 1-2. PT AMBULATES TO BSC WITH ASSIST. BED ALARM ON. IV ON L WRIST PATENT AND INFUSING NS 50 ML/HR. ALL NEEDS CURRENTLY MET. SAFETY MEASURES IN PLACE: BED LOW, LOCKED, UPPER BED RAILS UP, AND CALL LIGHT WITHIN REACH. WILL CONT TO MONITOR.
--- NOTE | 2018-03-07 19:56 | NUR ---
RN CLOSING NOTES PT. IS IN BED A&OX2, ORIENTED TO NAME AND PLACE. BREATHING UNLABORED ON ROOM AIR. NO S/S OF ACUTE DISTRESS. IV FLUIDS AT BEDSIDE RUNNING AT 50 ML/HR. BED IS IN LOWEST, AND LOCKED POSITION. 2 SIDE RAILS UP, AND INSTRUCTED PT. TO USE CALL LIGHT FOR ASSISTANCE. ALL NEEDS MET. WILL ENDORSE REPORT TO NURSE.
[2018-03-07 20:00] VITALS: BP 99/57
[2018-03-07] MEDS: ENOXAPARIN SODIUM 40 MG/0.4 ML DISP.SYRIN SQ SCH (20:18)
--- NOTE | 2018-03-08 06:20 | NUR ---
MS RN NOTE PT IN STABLE CONDITION. A&O X 1-2. PT AMBULATES TO BSC WITH ASSIST. BED ALARM ON. IV ON L WRIST PATENT AND INFUSING NS 50 ML/HR. ALL NEEDS CURRENTLY MET. SAFETY MEASURES IN PLACE: BED LOW, LOCKED, UPPER BED RAILS UP, AND CALL LIGHT WITHIN REACH. WILL CONT TO MONITOR AND ENDORSE TO NEXT SHIFT FOR RONEY.
--- NOTE | 2018-03-08 07:35 | NUR ---
RN OPENING NOTES RECEIVED PT. IN BED SLEEPING. BREATHING UNLABORED ON ROOM AIR. NO S/S OF ACUTE DISTRESS. IV FLUIDS AT BEDSIDE. BED IS IN LOWEST, AND LOCKED POSITION. BEDSIDE COMMODE IS WITHIN REACH. 2 SIDE RAILS UP, BED ALARM ON, AND CALL LIGHT WITHIN REACH. ALL NEEDS MET. WILL CONTINUE TO ASSESS AND MONITOR.
[2018-03-08 08:00] VITALS: BP 109/70
[2018-03-08 15:32] VITALS: BP 99/49
--- NOTE | 2018-03-08 19:20 | NUR ---
RN OPENING NOTES PT AWAKE AND RESTING IN BED. NO COMPLAINTS OF PAIN, SOB OR DISTRESS AT THIS TIME. PT HAS A LEFT WRIST #20 IV RUNNING NS @50ML/HR. SAFETY PRECAUTIONS IN PLACE, BED IN LOWEST LOCKED POSITION, X2 SIDE RAILS UP AND CALL LIGHT WITHIN REACH. WILL CONTINUE TO MONITOR.
[2018-03-08] MEDS: IV NS 0.9% 1,000 ML IV PRN (19:38)
[2018-03-08] MEDS: ENOXAPARIN SODIUM 40 MG/0.4 ML DISP.SYRIN SQ SCH (20:15)
[2018-03-08 20:35] VITALS: BP 100/55
--- NOTE | 2018-03-09 06:37 | NUR ---
RN CLOSING NOTES RESTING IN BED. PT CONFUSED. NO COMPLAINTS OR APPARENT S/S OF PAIN, SOB OR DISTRESS OVERNIGHT. PT HAS A LEFT WRIST #20 IV RUNNING NS @50ML/HR. SAFETY PRECAUTIONS IN PLACE, BED IN LOWEST LOCKED POSITION, X2 SIDE RAILS UP AND CALL LIGHT WITHIN REACH. ALL PATIENT NEEDS MET OVERNIGHT. WILL ENDORSE TO DAY SHIFT NURSE FOR CONTINUITY OF CARE.
--- NOTE | 2018-03-09 07:22 | NUR ---
MS/RN Patient received Patient received from retail shift leader. A/O X2, vital signs stable, remains fall risk therefore bed alarm switched on and in working order. Re-educated as to the importance of calling for help befoe getting out of bed, patient stated understanding. Safety measures in place, bed in low setting, side rails X3 in upright position, call light within reach. Will continue to monitor and ensure safety
[2018-03-09 08:09] VITALS: BP 151/85
[2018-03-09 09:05] VITALS: BP 151/85
--- NOTE | 2018-03-09 11:11 | NUR ---
MS/RN S/B Dr Guadalupe Seen by Dr Guadalupe - continue to await suitable placement, vocational case manager aware.
[2018-03-09] MEDS ORDERED: MAG30ORA PO (14:31)
[2018-03-09] MEDS ORDERED: ENOX40DI SQ (14:31)
[2018-03-09] MEDS ORDERED: ACET325T53 PO (14:31)
--- NOTE | 2018-03-09 15:16 | NUR ---
MS/RN Rounds Patient remains in stable condition, awaiting placement.
[2018-03-09 15:58] VITALS: BP 99/47
[2018-03-09 16:01] VITALS: BP 99/47
--- NOTE | 2018-03-09 17:00 | NUR ---
MS/RN Rash While cleaning patient with CONTRACT ACCOUNTANT, noticed increase in redness to both groin and upper thighs. Patient refusing pictures and becoming combative, refusing to open legs to enable proper hygiene needs to carlie addressed.
--- NOTE | 2018-03-09 18:04 | NUR ---
MS/subsea engineer Patient to be transferred to board and care this evening, exit care completed, chart copied, heplock and name bands removed. Personal belongings return to patient from safe. Awaiting transport.
--- NOTE | 2018-03-09 19:50 | NUR ---
RN NOTES PATIENT CONFUSED, AWAKE AND RESTING IN BED. PATIENT IS SUPPOSEDLY DISCHARGE AT THIS TIME FOR SNF, TRANSPORT MANAGER GAS IS ALREADY HERE, HOWEVER PATIENT REFUSED TO BE DISCHARGE, SHE WANTS HER CLOTHES TO BE WASH FIRST, NO COMPLAINTS OF PAIN, SOB OR DISTRESS AT THIS TIME. ALL SAFETY PRECAUTIONS IN PLACE, BED IN LOWEST LOCKED POSITION, X2 SIDE RAILS UP AND CALL LIGHT WITHIN REACH. WILL CONTINUE TO MONITOR ACCORDINGLY.
[2018-03-09 20:03] VITALS: BP 136/75
[2018-03-09] MEDS: ENOXAPARIN SODIUM 40 MG/0.4 ML DISP.SYRIN SQ SCH (22:52)
--- NOTE | 2018-03-10 04:00 | NUR ---
RN Notes received patient asleep in bed, on room air, no signs of distress and discomfort noted. Safety Addendum: 03/10/18 at 0708 by MIR GALLEGO RN RN Notes 0400 - Received patient asleep, on room air, no signs of distress and discomfort noted. Kept bed in the lowest position, locked, with 2 side rails up. Call light with in reached. Will continue to monitor patient.
--- NOTE | 2018-03-10 07:15 | NUR ---
MS RN Notes Pt in bed sleeping comfortably but easily awoken without any signs of acute distress or SOB noted. Pt to be discharged today, awaiting for MEHDI Siddiqui to machine operator picker pt.
--- NOTE | 2018-03-10 07:15 | NUR ---
RN Notes Patient asleep, breathing regular and unlabored, on room air and tolerated well. Patient still noted with periods of confusion, reorient PRN. Vital signs stable. Denies any pain and discomfort. Assisted to bedside commode, voiding well. No significant change in condition noted. For discharge today. Endorsed to morning RN for continuity of care.
[2018-03-10 08:00] VITALS: BP 121/78
--- NOTE | 2018-03-10 13:30 | NUR ---
MS/RN - Discharge Patient is alert and oriented x 2, confused at times, reality orientation given. Patient discharged to board and care in stable condition. Reviewed discharge instructions with Vanessa (board and care business administrator) and she verbalized full understanding and all questions answered to her satisfaction. All belongings returned to patient and she deny any missing items. VSS, denies pain, afebrile, no c/o SOB, tolerating room air, no apparent distress seen. No fall/injury during hospital stay. Patient refused discharge photos to be taken. Discharge papers given to Vanessa.
--- NOTE | 2018-03-10 14:15 | NUR ---
ALAN contacted line construction supervisor Alexandru Manley at [employer] to follow up regarding case being assigned. Rolendo informed ALAN that pt. has been assigned to Puma Daniel at . His email is [email or web address] Pt's case number with Public Guardian's office is [id number]. Pt. was discharged today to [facility] located at [address] [place] [address] in stable condition. Vanessa's contact is . Vanessa (trichologist) picked up the pt at 13:00. All belongings, including house peralta sent with the pt. ALAN contacted [facility] ALAN Reyes and updated with pt's discharge plan and address to board and care. ALAN also gave him the name and contact for Puma Daniel at the Public Guardian's office. ALAN contacted [place] Puma Daniel at [facility] [employer] office and left him a voicemail message informing him the pt. was discharged to a board and care and to contact ALAN for detail information.
--- NOTE | 2018-03-11 12:43 | NUR ---
ALAN received a call from Puma Daniel from the public guardian's office stating he received ALAN's message and to send him the H&P from ED and when pt. was inpatient. ALAN faxed requested documentation to Puma at . ALAN also gave him [facility] address and Vanessa's contact.
== END 2018-03-10 13:30 | disposition home or self-care (01) | DRG 640 ==
LOC: EDBD 10:51 → ER 10:51 → TELE 14:42 → MED 02-25 10:48
PROVIDERS: ADMIT Registered Nurse; ATTEND Registered Nurse
DX: E86.0 Dehydration (principal); G93.41 Metabolic encephalopathy; E44.0 Moderate protein-calorie malnutrition; F05 Delirium due to known physiological condition; F01.51 Vascular dementia, unspecified severity, with behavioral disturbance; R62.7 Adult failure to thrive; F32.9 Major depressive disorder, single episode, unspecified; E87.6 Hypokalemia; Z91.19 Patient's noncompliance with other medical treatment and regimen; Z73.6 Limitation of activities due to disability; M79.601 Pain in right arm; F20.9 Schizophrenia, unspecified; F70 Mild intellectual disabilities; G30.9 Alzheimer's disease, unspecified; F02.80 Dementia in other diseases classified elsewhere, unspecified severity, without behavioral disturbance, psychotic disturbance, mood disturbance, and anxiety; L60.3 Nail dystrophy; B35.1 Tinea unguium
CPT/HCPCS: 36415; 70450-TC; 70551-TC; 71045-TC; 73030-TC; 80048-TC; 80053-TC; 80061-TC; 80076-TC; 80305; 81000-TC; 82140-TC; 83735-TC; 84100-TC; 84443-TC; 84484-TC; 85025-TC; 85730-TC; 87081-TC; 95819-TC; G0378; G0480; J1650; J7030

== ENCOUNTER 2018-12-01 19:12 | Inpatient (IN) | payer MEDICARE, MEDICAID ==
[~2018-12-01 19:12] MED LIST: ACET325T53 PO; ENOX40DI SQ; MAG30ORA PO
[2018-12-01 20:00] VITALS: BP 99/58
[2018-12-01 20:55] VITALS: BP 99/58
--- NOTE | 2018-12-01 20:55 | NUR ---
MS/RN notes 68 Years old female patient admitted to Med-surg unit with the DX of UTI. Patient A/O x2 with period of confusion and disorientation, patient in no acute distress, respiration even and unlabored, no SOB noted, Skin warm to touch, No S/S of pain noted at this time, body assessment done per protocol. IV site on right AC with no S/S of infection, infiltration. Safety maintained, bed at the lowest locked position, kept clean and dry. Call light within reach. Will continue to monitor as per plan of care.
[2018-12-01] MEDS ORDERED: ONDANSETRON HCL/PF 4 MG/2 ML VIAL IVP PRN (21:30)
[2018-12-01] MEDS ORDERED: ACETAMINOPHEN 325 MG TABLET PO PRN (21:30)
[2018-12-01] MEDS ORDERED: ZOLPIDEM TARTRATE 5 MG TABLET PO PRN (21:30)
[2018-12-01] MEDS ORDERED: Z GUARD REMEDY 2 OZ OINT TP PRN (21:30)
[2018-12-01] MEDS ORDERED: HYDROCODONE/APAP 5/325MG 1 EACH TABLET PO PRN (21:30)
[2018-12-01] MEDS: IV NS 0.9% 1,000 ML IV PRN (21:51)
[2018-12-01] MEDS ORDERED: CEFTRIAXONE 1 G in IV D5W 50 ML IV SCH (22:00)
[2018-12-01] MEDS ORDERED: CEFTRIAXONE 1 G VIAL ONE (22:03)
[2018-12-02] VITALS: BP 99/58
[2018-12-02 04:00] VITALS: BP 100/75
[2018-12-02 06:27] LABS: BASOPHILS % (AUTO) 0.1 % (0.0-2.0); EOSINOPHILS % (AUTO) 0.8 % (0.0-6.0); HEMATOCRIT 33 % (33-45); HEMOGLOBIN 11.1 g/dL (11.5-14.8); LYMPHOCYTES # (AUTO) 0.9 /CMM (0.8-4.8); MEAN CORPUSCULAR HGB CONC 34 g/dl (31.0-36.0); MEAN CORPUSCULAR VOLUME 93 fL (82-100); MONOCYTES # (AUTO) 0.6 /CMM (0.1-1.30); MONOCYTES % (AUTO) 15.5 % (2.0-12.0); NEUTROPHILS # (AUTO) 2.5 /CMM (1.8-8.9); NEUTROPHILS % (AUTO) 60.6 % (43.0-81.0); PLATELET COUNT (AUTO) 194 /CMM (150-450); RED BLOOD CELL COUNT(AUTO) 3.58 MIL/uL (4.0-5.2); WHITE BLOOD COUNT (AUTO) 4.1 K/uL (4.3-11.0)
[2018-12-02 06:56] LABS: CALCIUM, SERUM 6.7 mg/dL (8.5-10.1); CREATININE 0.7 mg/dL (0.6-1.3); MAGNESIUM 1.9 mg/dL (1.8-2.4); PHOSPHORUS 2.3 mg/dL (2.5-4.9); POTASSIUM 2.9 mmol/L (3.5-5.1)
--- NOTE | 2018-12-02 07:15 | NUR ---
MS RN OPENING NOTE RECEIVED REPORT FROM [facility] SHIFT NURSE. PT ASLEEP IN BED, ON ROOM AIR, SATURATING WELL, RESPIRATIONS EASY AND UNLABORED, NO SIGNS OF RESPIRATORY DISTRESS NOTED. IV SITE ON RIGHT AC G20 INFUSING NS AT 75ML/HR, NO SIGNS OF INFILTRATION NOTED. BED IN LOW POSITION, LOCKED, CALL LIGHT WITHIN REACH.
--- NOTE | 2018-12-02 07:24 | NUR ---
ENDORSE TO AM SHIFT NURSE FOR RONEY.
[2018-12-02 08:00] VITALS: BP_SYST 96; BP_DIAS 42; BP_DIAS 50
--- NOTE | 2018-12-02 08:48 | NUR ---
PT BY BEDSIDE
--- NOTE | 2018-12-02 09:49 | NUR ---
PT REMOVED IV FROM RIGHT AC. APPLIED DRESSING. INSERTED IV INTO LEFT AC G20, LINE IS PATENT, INTACT, INFUSING NS AT 75ML/HR.
[2018-12-02] MEDS ORDERED: K PHOS NEUTRAL 250 MG TABLET PO ONE (11:30)
[2018-12-02] MEDS: POTASSIUM CHLORIDE 20 MEQ TAB.PRT.SR PO SCH ×3 (11:35→13:52)
[2018-12-02] MEDS: IV NS 0.9% 1,000 ML IV PRN ×2 (11:38→23:59)
[2018-12-02 16:00] VITALS: BP 118/65
--- NOTE | 2018-12-02 18:17 | NUR ---
MS RN CLOSING NOTE PT AWAKE IN BED, ALERT AND ORIENTED X 2, (TO PERSON AND PLACE ONLY), ON ROOM AIR, SATURATING WELL, NO SIGNS OF RESPIRATORY DISTRESS NOTED. IV SITE ON LEFT AC G20 INTACT, PATENT, INFUSING NS AT 75ML/HR, NO SIGNS OF INFILTRATION NOTED. PROVIDED SAFETY AND COMFORT TO PT THROUGHOUT SHIFT. ALL DUE MEDS GIVEN. WILL ENDORSE TO NOC SHIFT NURSE.
--- NOTE | 2018-12-02 19:15 | NUR ---
RN OPENING NOTES: PATIENT IN BED, AWAKE, AND VERBALLY RESPONSIVE. NO SOB. NO PAIN. (L) AC IV 20G INTACT AND PATENT RUNNING NS 0.9% AT 75 MLS/HR. SAFETY PRECAUTIONS IMPLEMENTED. BED LOCKED AND IN LOWEST POSITION. CALL LIGHT PLACED WITHIN REACH. WILL CONT. TO MONITOR.
[2018-12-02] MEDS: CEFTRIAXONE 1 G in IV D5W 50 ML IV SCH (19:40)
[2018-12-02 20:00] VITALS: BP 148/64
--- NOTE | 2018-12-03 02:05 | NUR ---
RN NOTE: (L) AC IV SITE REMOVED BY PATIENT. APPLIED DRESSING. INSERTED A NEW IV INTO (L) HAND G20. IV LINE IS INTACT, PATENT, AND INFUSING NS AT 75 MLS/HR. WILL CONT. TO MONITOR.
[2018-12-03 04:00] VITALS: BP 118/51
[2018-12-03 06:42] LABS: BASOPHILS % (AUTO) 0.3 % (0.0-2.0); HEMATOCRIT 34 % (33-45); HEMOGLOBIN 11.7 g/dL (11.5-14.8); LYMPHOCYTES # (AUTO) 1.4 /CMM (0.8-4.8); LYMPHOCYTES % (AUTO) 25.5 % (20.0-44.0); MEAN CORPUSCULAR HGB CONC 34 g/dl (31.0-36.0); MEAN CORPUSCULAR VOLUME 91 fL (82-100); MONOCYTES # (AUTO) 0.8 /CMM (0.1-1.30); MONOCYTES % (AUTO) 14.9 % (2.0-12.0); NEUTROPHILS # (AUTO) 3.1 /CMM (1.8-8.9); NEUTROPHILS % (AUTO) 58.3 % (43.0-81.0); PLATELET COUNT (AUTO) 232 /CMM (150-450); RED BLOOD CELL COUNT(AUTO) 3.78 MIL/uL (4.0-5.2); WHITE BLOOD COUNT (AUTO) 5.4 K/uL (4.3-11.0)
[2018-12-03 06:51] LABS: CALCIUM, SERUM 7.4 mg/dL (8.5-10.1); CREATININE 0.6 mg/dL (0.6-1.3); POTASSIUM 3.6 mmol/L (3.5-5.1)
--- NOTE | 2018-12-03 07:05 | NUR ---
RN CLOSING NOTES: PATIENT IN BED, AWAKE, AND VERBALLY RESPONSIVE. NO RESPIRATORY DISTRESS. NO PAIN. ALL NEEDS MET AND ANTICIPATED. SAFETY PRECAUTIONS IMPLEMENTED. ENDORSED TO NEXT SHIFT NURSE FOR CONTINUITY OF CARE.
--- NOTE | 2018-12-03 07:25 | NUR ---
MS RN OPENING NOTE RECEIVED REPORT FROM [facility] SHIFT NURSE. PT AWAKE IN BED, ALERT AND ORIENTED X 1, ON ROOM AIR, SATURATING WELL, RESPIRATIONS EASY AND UNLABORED, NO SIGNS OF RESPIRATORY DISTRESS NOTED. IV SITE ON LEFT HAND G20 INFUSING NS AT 75ML/HR, NO SIGNS OF INFILTRATION NOTED. BED IN LOW POSITION, LOCKED, CALL LIGHT WITHIN REACH. INTRODUCED SELF TO PT AND DISCUSSED PLAN OF CARE.
[2018-12-03 08:00] VITALS: BP 132/75
[2018-12-03 12:00] VITALS: BP 126/71
[2018-12-03 16:00] VITALS: BP 110/72
[2018-12-03] MEDS: IV NS 0.9% 1,000 ML IV PRN (17:21)
--- NOTE | 2018-12-03 18:41 | NUR ---
MS RN CLOSING NOTE PT AWAKE IN BED, ALERT AND ORIENTED X 2, ON ROOM AIR, SATURATING WELL, RESPIRATIONS EASY AND UNLABORED, NO SIGNS OF RESPIRATORY DISTRESS NOTED. IV SITE ON LEFT HAND G20 INFUSING NS AT 75ML/HR, NO SIGNS OF INFILTRATION NOTED. OBTAINED URINE CX, LAB TEAM LEADER- RESULTS PENDING. BED IN LOW POSITION, LOCKED, CALL LIGHT WITHIN REACH. PROVIDED SAFETY AND COMFORT TO PT THROUGHOUT SHIFT, ALL DUE MEDS GIVEN. WILL ENDORSE TO NOC SHIFT NURSE.
--- NOTE | 2018-12-03 19:08 | NUR ---
MS RN OPENING NOTES: PATIENT IS RESTING COMFORTABLY IN BED. AWAKE,ALERT. NO SOB NOTED. BED IN LOWEST AND LOCKED POSITION. CALL LIGHT WITHIN REACH. BED ALARM ON.
[2018-12-03 20:00] VITALS: BP 119/64
[2018-12-03] MEDS: CEFTRIAXONE 1 G in IV D5W 50 ML IV SCH (20:41)
[2018-12-04 04:09] VITALS: BP 118/64
[2018-12-04 04:44] VITALS: BP 118/64
--- NOTE | 2018-12-04 05:53 | NUR ---
MS RN CLOSING NOTES: PATIENT IS RESTING COMFORTABLY IN BED. AWAKE ALERT AND ORIENTED X1. NO ACUTE EVENTS OVERNIGHT. NO SOB NOTED. AMBULATED TO THE BATHROOM TO VOID. NO C/O PAIN. RESTED THROUGHOUT THE NIGHT. CALL LIGHT WITHIN REACH. BED ALARM ON. BED IN LOWEST AND LOCKED POSITION. VITALS STABLE.
[2018-12-04] MEDS: IV NS 0.9% 1,000 ML IV PRN (06:51)
--- NOTE | 2018-12-04 07:12 | NUR ---
MS RN OPENING NOTE RECEIVED REPORT FROM [facility] SHIFT NURSE. PT AWAKE IN BED, ALERT AND ORIENTED X 1, ON ROOM AIR, SATURATING WELL, RESPIRATIONS EASY AND UNLABORED, NO SIGNS OF RESPIRATORY DISTRESS NOTED. IV SITE ON LEFT HAND G20 INFUSING NS AT 75ML/HR, NO SIGNS OF INFILTRATION NOTED. BED IN LOW POSITION, LOCKED, CALL LIGHT WITHIN REACH. INTRODUCED SELF TO PT AND DISCUSSED PLAN OF CARE.
[2018-12-04 08:00] VITALS: BP 114/62
[2018-12-04 12:00] VITALS: BP 116/75
[2018-12-04] MEDS ORDERED: CEPH-570 PO (14:35)
--- NOTE | 2018-12-04 15:00 | NUR ---
SPOKE WITH MARCY FROM BOARD AND [facility]- WHO REQUESTED WE ADMINISTER THE INFLUENZA AND PNEUMOVAX VACCINES PRIOR TO PATIENT'S DISCHARGE.
[2018-12-04] MEDS ORDERED: INFLUENZA VACCINE 2019-20 0.5 ML DISP.SYRIN IM ONE (15:30)
[2018-12-04] MEDS ORDERED: PNEUMOCOCCAL 23-VAL P-SAC VAC 0.5 ML VIAL SQ ONE (15:30)
--- NOTE | 2018-12-04 15:41 | NUR ---
DISCHARGE PHOTOS TAKEN, PLACED INTO CHART. ALL BELONGINGS ACCOUNTED FOR, VALUABLES FORM SIGNED.
--- NOTE | 2018-12-04 18:31 | NUR ---
MS RN CLOSING NOTE PT AWAKE IN BED, ALERT AND ORIENTED X 2, ON ROOM AIR, SATURATING WELL, RESPIRATIONS EASY AND UNLABORED, NO SIGNS OF RESPIRATORY DISTRESS NOTED. IV SITE ON LEFT HAND G20 PATENT, INTACT, WITH SALINE LOCK. BED IN LOW POSITION, LOCKED, CALL LIGHT WITHIN REACH. ALL DUE MEDS GIVEN, PROVIDED SAFETY AND COMFORT TO PT THROUGHOUT SHIFT. DISCHARGE PAPERWORK COMPLETED- WAITING FOR PT BRANCH SERVICE LEADER FROM BOARD AND CARE- CONFIRMED BRANCH SERVICE LEADER FOR TODAY BUT WITHOUT EXACT TIME.
[2018-12-04 20:00] VITALS: BP 118/73
--- NOTE | 2018-12-04 20:05 | NUR ---
RN NOTE PATIENT WAS DISCHARGED BACK TO [facility], REPORT WAS PROVIDED TO MARGARETH, PATIENT IS STABLE, ORIENTED TO NAME AND PLACE, AMBULATORY, STEADY GAIT, ALL BELONGING'S TAKEN, BELONGING'S LIST IS IN THE CHART, ALL SKIN PICTURES WERE TAKEN BY AM NURSE AND PLACED IN THE CHART, NO IV ACCESS NOTED, PATIENT WAS TAKEN BY CAREGIVER AND TRANSFERRED VIA WHEELCHAIR TO THE CAR WITH AN ASSISTANCE OF COLOR CHECKER, NO DISTRESS NOTED
== END 2018-12-04 20:06 | disposition home or self-care (01) | DRG 392 ==
LOC: MEDSG1 20:42
DX: A08.4 Viral intestinal infection, unspecified (principal); N39.0 Urinary tract infection, site not specified; E87.6 Hypokalemia; E86.0 Dehydration; Z79.899 Other long term (current) drug therapy; Z79.01 Long term (current) use of anticoagulants; E83.39 Other disorders of phosphorus metabolism; D72.819 Decreased white blood cell count, unspecified; D64.9 Anemia, unspecified
CPT/HCPCS: 36415; 80048-TC; 80061-TC; 83735-TC; 84100-TC; 85025-TC; 87081-TC; 87086-TC; 90732; 97116-TC; 97530-TC; G0378; J0696; J7030; J7060; Q2036